=== PATIENT | male | born 1995 | race African-American/Black ===

== ENCOUNTER → 2022-04-28 11:20 | Outpatient (CLI) | payer BC, SELFPAY ==
--- NOTE | ~2022-04-28 | MR_ITS ---
EXAMINATION: MR knee RT wo con DATE: 04/28/2022 12:15 INDICATION: Anterior right knee pain with grinding and difficulty cyst extending. History of prior kn ee surgeries. TECHNIQUE: Magnetic resonance imaging (MRI) of the right knee was performed without intravenous contr ast. Sequences included axial PD-weighted FS FSE, coronal PD-weighted FSE and PD-weighted FS FSE, sag ittal PD-weighted FSE, and sagittal T2-weighted FS FSE. COMPARISON: None. FINDINGS: Medial compartment: Mild blunting of the apex of the anterior horn and body of the medial meniscus. Mild cartilage signal abnormality without focal defect. Mild osteophytosis. Lateral compartment: Apical tear of the body of the lateral meniscus with adjacent fraying. Cartilage signal abnormality w ithout focal defect. Osteophytosis. Patellofemoral compartment: Mild cartilage thinning with partial thickness cartilage defects and signal abnormality. The retinacu la are intact. Mild osteophytosis. Ligaments and tendons: Lines and LCL are intact. The remaining flexor and extensor tendons are intact. Fluid: Trace joint fluid. Osseous/other: No suspicious focal or diffuse marrow signal. IMPRESSION: 1. Apical tear of the body of the lateral meniscus with adjacent meniscal fraying. 2. Presumed postsurgical change in the anterior horn and body of the medial meniscus. 3. Moderate chondromalacia patellae. 4. Mild tricompartmental osteoarthritis. Reviewed, dictated and finalized at location [facility] IMPRESSION: 1. Apical tear of the body of the lateral meniscus with adjacent meniscal frayi ng. 2. Presumed postsurgical change in the anterior horn and body of the medial men iscus. 3. Moderate chondromalacia patellae. 4. Mild tricompartmental osteoarthritis.
== END ==
PROVIDERS: PCP Family Medicine; Visit Provider Orthopaedic Surgery
DX: M17.11 Unilateral primary osteoarthritis, right knee (principal); S83.281A Other tear of lateral meniscus, current injury, right knee, initial encounter; X58.XXXA Exposure to other specified factors, initial encounter
CPT/HCPCS: 73721